=== PATIENT | female | born 1990 | race Two or more races ===

== ENCOUNTER 2023-04-25 08:05 | Outpatient (CLI) | payer OTHER ==
[~2023-04-25 08:05] MED LIST: FOLIC ACID20 MG; PRENATE DHA SO1 EAC1 PO; PROMETRIUM200 MG PO; TIROSINT150 MCG PO
== END 2023-04-25 08:07 | disposition home or self-care (01) ==
LOC: PRENATAL 08:05
PROVIDERS: ATTEND Obstetrics & Gynecology Maternal & Fetal Medicine
DX: O35.3XX0 Maternal care for (suspected) damage to fetus from viral disease in mother, not applicable or unspecified (principal); O44.00 Complete placenta previa NOS or without hemorrhage, unspecified trimester; O99.210 Obesity complicating pregnancy, unspecified trimester; Z3A.20 20 weeks gestation of pregnancy

== ENCOUNTER 2023-06-20 09:22 | Outpatient (CLI) | payer OTHER | END 2023-06-20 09:25 | disposition home or self-care (01) | LOC: PRENATAL 09:22 | PROVIDERS: ATTEND Obstetrics & Gynecology Maternal & Fetal Medicine | DX: O26.849 Uterine size-date discrepancy, unspecified trimester (principal); O99.210 Obesity complicating pregnancy, unspecified trimester; Z3A.28 28 weeks gestation of pregnancy ==

== ENCOUNTER → 2023-07-28 10:23 | Outpatient (CLI) | payer OTHER | END | disposition home or self-care (01) | LOC: PRENATAL 10:23 | PROVIDERS: ATTEND Obstetrics & Gynecology Maternal & Fetal Medicine | DX: O26.849 Uterine size-date discrepancy, unspecified trimester (principal); O36.8199 Decreased fetal movements, unspecified trimester, other fetus; O99.210 Obesity complicating pregnancy, unspecified trimester; O99.280 Endocrine, nutritional and metabolic diseases complicating pregnancy, unspecified trimester; Z3A.34 34 weeks gestation of pregnancy ==

== ENCOUNTER 2023-08-03 20:18 | Emergency (ER) | payer OTHER ==
[~2023-08-03] VITALS: Ht 157.5 cm; Wt 99.8 kg
[2023-08-03] MEDS ORDERED: FAMOTIDINE/PF 20 MG in 0.9 % SODIUM CHLORIDE 8 ML IV PUSH STA (20:52)
[2023-08-03] MEDS ORDERED: RINGERS SOLUTION,LACTATED 1,000 ML IV SCH (21:00)
[2023-08-03] MEDS ORDERED: ONDANSETRON HCL 2 MG/ML VIAL IV ONE (21:00)
[2023-08-03 21:14] LABS: URINE APPEARANCE Clear; URINE BILIRRUBIN Small (NEGATIVE); URINE BLOOD Negative; URINE COLOR Dark Yellow; URINE GLUCOSE Negative (NEGATIVE); URINE LEUKOCYTE Trace; URINE NITRATE Negative; URINE PROTEIN 30 (NEGATIVE)
[2023-08-03 21:18] LABS: URINE BACTERIA 439.7 uL (0.0-1933); URINE EPITHELIAL CELLS 35.4 uL (0.0-38.8); URINE RBC 5.6 uL (0.0-20.8)
[2023-08-03 21:19] LABS: HEMATOCRIT 36.9 % (36.0-45.00); HEMOGLOBIN 12.5 g/dL (12.0-15.00); MEAN CELL VOLUME 85.2 fL (80.00-100.00); MEAN CORPUSCULAR HEMOGLOBIN 28.9 pg (27.00-32.0); MEAN CORPUSCULAR HGB CONC 33.9 g/dl (32.0-36.0); PLATELET COUNT 266 K/uL (150-450); RED BLOOD COUNT 4.33 M/uL (4.00-6.00); RED CELL DISTRIBUTION WIDTH 15.2 % (11.5-14.5)
[2023-08-03 22:08] LABS: ALBUMIN 2.7 gm/dL (3.4-5.0); BILIRUBIN TOTAL 0.76 mg/dL (0.3-1.2); CALCIUM 8.9 mg/dL (8.5-10.1); CREATININE SERUM 0.59 mg/dL (0.55-1.02); GFR 118.88; POTASSIUM 3.93 mEq/L (3.5-5.1); TOTAL PROTEIN 6.7 gm/dL (6.4-8.2)
[2023-08-03] MEDS ORDERED: ONDANSETRON ODT8 MG PO (23:10)
== END 2023-08-03 23:38 | disposition home or self-care (01) ==
LOC: ER 20:19
PROVIDERS: General Practice
DX: O26.893 Other specified pregnancy related conditions, third trimester (principal); R11.2 Nausea with vomiting, unspecified; Z3A.35 35 weeks gestation of pregnancy

== ENCOUNTER 2023-08-23 13:30 | Inpatient (IN) | payer OTHER ==
[~2023-08-23] VITALS: Ht 157.5 cm; Wt 100.2 kg
[~2023-08-23 13:30] MED LIST changes: +ONDANSETRON ODT8 MG PO
[2023-08-29] MEDS ORDERED: SYNTHROID137 MCG PO (11:00)
[2023-08-29] MEDS ORDERED: AMOXICILLIN500 MG PO (11:01)
[2023-08-29] MEDS ORDERED: ZITHROMAX500 MG PO (13:14)
[2023-09-01] MEDS ORDERED: RINGERS SOLUTION,LACTATED 1,000 ML IV SCH (06:45)
[2023-09-01] MEDS ORDERED: AMPICILLIN SODIUM 2,000 MG VIAL IV STA (06:45)
[2023-09-01] MEDS ORDERED: OXYTOCIN 500 ML IV SCH (06:45)
[2023-09-01] MEDS ORDERED: GUAIFENESIN 200 MG/10 ML BLIST.PACK PO SCH (06:48)
[2023-09-01 07:43] LABS: URINE APPEARANCE Clear; URINE BILIRRUBIN Negative (NEGATIVE); URINE BLOOD Moderate; URINE COLOR Dark Yellow; URINE GLUCOSE Negative (NEGATIVE); URINE LEUKOCYTE Negative; URINE NITRATE Negative; URINE PROTEIN 30 (NEGATIVE)
[2023-09-01 07:47] LABS: URINE BACTERIA 753.4 uL (0.0-1933); URINE EPITHELIAL CELLS 22.8 uL (0.0-38.8); URINE RBC 252.9 uL (0.0-20.8); URINE WBC 27.9 uL (0.0-23.2)
[2023-09-01 07:52] LABS: HEMATOCRIT 31.3 % (36.0-45.00); HEMOGLOBIN 10.4 g/dL (12.0-15.00); MEAN CELL VOLUME 83.2 fL (80.00-100.00); MEAN CORPUSCULAR HEMOGLOBIN 27.6 pg (27.00-32.0); MEAN CORPUSCULAR HGB CONC 33.2 g/dl (32.0-36.0); PLATELET COUNT 285 K/uL (150-450); RED BLOOD COUNT 3.76 M/uL (4.00-6.00); RED CELL DISTRIBUTION WIDTH 15.2 % (11.5-14.5)
[2023-09-01 07:58] LABS: INR 0.95; PARTIAL THROMBOPLASTIN TIME 26.2 SECONDS (22.0-34.0)
[2023-09-01 08:00] LABS: URINE CRYSTALS MODERATE /HPF
[2023-09-01] MEDS ORDERED: AMPICILLIN SODIUM 1,000 MG VIAL IV SCH (08:00)
[2023-09-01 08:30] LABS: ALBUMIN 2.7 gm/dL (3.4-5.0); BILIRUBIN TOTAL 0.26 mg/dL (0.3-1.2); CALCIUM 8.8 mg/dL (8.5-10.1); CREATININE SERUM 0.73 mg/dL (0.55-1.02); GFR 92.39; GLOBULINA 3.7 G/DL (2.4-3.5); POTASSIUM 3.95 mEq/L (3.5-5.1); TOTAL PROTEIN 6.4 gm/dL (6.4-8.2)
[2023-09-01] MEDS ORDERED: MEPERIDINE HCL/PF 50 MG/ML VIAL IV STA ×2 (09:36→12:22)
[2023-09-01] MEDS ORDERED: PROMETHAZINE HCL 25 MG/ML AMPUL IV STA ×2 (09:36→12:23)
[2023-09-01] MEDS ORDERED: ERYTHROMYCIN BASE 1 GM TUBE OP ONE ×2 (12:22→16:45)
[2023-09-01] MEDS ORDERED: CHLORHEXIDINE GLUCONATE 120 ML BOTTLE TOP ONE ×2 (12:22→16:45)
[2023-09-01] MEDS ORDERED: OXYTOCIN 20 UNITS/1000ML RL PIGGYBAG IV ONE ×2 (12:24→16:45)
[2023-09-01] MEDS ORDERED: ACETAMINOPHEN 325 MG TABLET PO PRN (16:45)
[2023-09-01] MEDS ORDERED: OxyCODONE HCL/APAP UD (PERCOCET) PO PRN (16:45)
[2023-09-01] MEDS ORDERED: HYDROCORTISONE 2.5% 30 GM TUBE RECTAL SCH (17:00)
[2023-09-01] MEDS ORDERED: BENZOCAINE/MENTHOL 90 ML BOTTLE TOP SCH (17:00)
[2023-09-02 01:35] LABS: HEMATOCRIT 30.1 % (36.0-45.00); HEMOGLOBIN 10.1 g/dL (12.0-15.00); MEAN CELL VOLUME 83.8 fL (80.00-100.00); MEAN CORPUSCULAR HGB CONC 33.4 g/dl (32.0-36.0); PLATELET COUNT 260 K/uL (150-450); RED BLOOD COUNT 3.59 M/uL (4.00-6.00)
[2023-09-02] MEDS ORDERED: POVIDONE-IODINE 118 ML BOTT TOP ONE ×2 (07:37→08:15)
[2023-09-02] MEDS ORDERED: CEFAZOLIN SODIUM 1,000 MG VIAL ONE (08:07)
[2023-09-02] MEDS ORDERED: CEFAZOLIN SODIUM 1,000 MG VIAL IV ONE (08:15)
[2023-09-02] MEDS ORDERED: ALBUTEROL SULFATE 3 ML/2.5 MG AMPUL.NEB IH ONE ×2 (08:28→11:30)
[2023-09-02] MEDS ORDERED: ONDANSETRON HCL 2 MG/ML VIAL ONE (10:43)
[2023-09-02] MEDS ORDERED: AMPICILLIN SODIUM 1,000 MG VIAL ONE (11:10)
[2023-09-02] MEDS ORDERED: ENALAPRILAT DIHYDRATE 1.25 MG/ML VIAL IV ONE (14:18)
[2023-09-03] MEDS ORDERED: HYPERRHO S-1500 UNIT IM (08:22)
[2023-09-03] MEDS ORDERED: FF) RHO(D) IMMUNE GLOBULIN (POM) IM ONE (08:30)
== END 2023-09-03 16:14 | disposition home or self-care (01) | DRG 798 ==
LOC: OB/GYN 09-01 06:09 → LDR 09-01 06:09 → OB/GYN 09-01 16:47
PROVIDERS: ADMIT Specialist; ATTEND Specialist
PROC: 10E0XZZ Delivery of Products of Conception, External Approach (ICD-10-PCS; principal; 2023-09-01)
PROC: 4A1HXCZ Monitoring of Products of Conception, Cardiac Rate, External Approach (ICD-10-PCS; 2023-09-01)
PROC: 0UB70ZZ Excision of Bilateral Fallopian Tubes, Open Approach (ICD-10-PCS; 2023-09-02)
PROC: 3E0F7GC Introduction of Other Therapeutic Substance into Respiratory Tract, Via Natural or Artificial Opening (ICD-10-PCS; 2023-09-02)
DX: O99.824 Streptococcus B carrier state complicating childbirth (principal); Z37.0 Single live birth; O99.284 Endocrine, nutritional and metabolic diseases complicating childbirth; O99.52 Diseases of the respiratory system complicating childbirth; E03.9 Hypothyroidism, unspecified; J45.909 Unspecified asthma, uncomplicated; Z30.2 Encounter for sterilization; Z3A.39 39 weeks gestation of pregnancy; Z20.822 Contact with and (suspected) exposure to COVID-19

== ENCOUNTER 2023-08-29 10:13 | Emergency (ER) | payer OTHER ==
[~2023-08-29] VITALS: Ht 157.5 cm; Wt 97.1 kg
[2023-08-29] MEDS ORDERED: SYNTHROID137 MCG PO (11:00)
[2023-08-29] MEDS ORDERED: AMOXICILLIN500 MG PO (11:01)
[2023-08-29 12:46] LABS: HEMATOCRIT 33.5 % (36.0-45.00); MEAN CELL VOLUME 82.6 fL (80.00-100.00); MEAN CORPUSCULAR HEMOGLOBIN 27.3 pg (27.00-32.0); PLATELET COUNT 267 K/uL (150-450); RED BLOOD COUNT 4.05 M/uL (4.00-6.00); RED CELL DISTRIBUTION WIDTH 15.4 % (11.5-14.5)
[2023-08-29] MEDS ORDERED: ZITHROMAX500 MG PO (13:14)
== END 2023-08-29 13:44 | disposition home or self-care (01) ==
LOC: ER 10:13
PROVIDERS: General Practice
DX: J02.9 Acute pharyngitis, unspecified (principal); Z20.822 Contact with and (suspected) exposure to COVID-19